=== PATIENT | female | born 1995 | race Caucasian/White ===

== ENCOUNTER 2020-05-19 14:40 | Emergency (ER) | payer OTHER ==
[2020-05-19] MEDS ORDERED: SEROQUEL XR50 MG PO (15:13)
== END 2020-05-19 16:00 | disposition left against medical advice (07) ==
LOC: ED 14:40
DX: R69 Illness, unspecified (principal); Z53.21 Procedure and treatment not carried out due to patient leaving prior to being seen by health care provider